=== PATIENT | male | born 1950 | race Hispanic/Latino ===

== ENCOUNTER → 2017-05-04 | Day surgery (SDC) | payer MEDICARE ==
[2017-05-03 13:37] LABS: BASOPHILS # (AUTO) 0.1 (0.0-0.1); BASOPHILS % 0.5 % (0.0-1.0); EOSINOPHILS # (AUTO) 0.2 (0.0-0.4); EOSINOPHILS % 2.4 % (0.0-6.0); HEMATOCRIT 45.5 % (38.2-49.6); HEMOGLOBIN 15.3 g/dL (14.0-18.0); LYMPHOCYTES # (AUTO) 3.5 (1.0-3.2); LYMPHOCYTES % 37.5 % (18.0-39.1); MEAN CORPUSCULAR HEMOGLOBIN 31.2 pg (28-32); MEAN CORPUSCULAR HGB CONC 33.6 g/dL (31-35); MEAN CORPUSCULAR VOLUME 92.9 fL (81-99); MONOCYTES # (AUTO) 0.6 (0.2-0.8); MONOCYTES % 6.4 % (4.4-11.3); NEUTROPHILS # (AUTO) 4.9 (2.1-6.9); PLATELET COUNT 153 x10e3/uL (140-360)
[2017-05-03 14:07] LABS: ALBUMIN 3.8 g/dL (3.5-5.0); CALCIUM 9.6 mg/dL (8.4-10.2); CHOL/HDL RATIO 7.1 (3.9-4.7); CREATININE, SERUM 1.47 mg/dL (0.72-1.25); POTASSIUM 5.3 mmol/L (3.5-5.1)
[2017-05-03 14:31] LABS: ANION GAP 15.6 mmol/L (8-16)
[~2017-05-04] VITALS: Ht 175.3 cm; Wt 77.1 kg
[~2017-05-04] MED LIST: FENTANYL CITRATE/PF 100MCG/2 ML INJ ONE; HEPARIN SOD (PORCINE) 1000 UNIT/ML 30ML ONE; HEPARIN SOD/SOD CHLORIDE 2,000 ML ONE; IOPAMIDOL 300MG/ML 100 ML INFUS..BTL IV ONE; LIDOCAINE HCL 2% LOCAL 20 ML VIAL ONE; MIDAZOLAM HCL 2 MG/2 ML VIAL ONE; NITROGLYCERIN/D5W 200 MCG/ML 250 ML ONE; PRASUGREL 10 MG TAB ONE; SODIUM CHLORIDE 0.9% 1000ML 1,000 ML ONE; VERAPAMIL HCL 2.5 MG/ML 2 ML VIAL ONE
--- NOTE | 2017-05-04 19:11 | Operative Report ---
DATE OF PROCEDURE: May 04, 2017 INDICATIONS: Peripheral arterial disease, claudication of the right lower extremity. PROCEDURES PERFORMED: 1. Abdominal aortogram. 2. Bilateral lower extremity angiograms. 3. Selective catheter placement in the left femoral artery and the right superficial femoral artery (3rd-order). 4. Additional 3rd-order catheter placement in the left femoral artery to the right posterior tibial artery. 5. Atherectomy and drug-coated balloon angioplasty of the right popliteal artery. 6. Secondary thrombectomy of the right popliteal artery. 7. Deployment of left groin Perclose. COMPLICATIONS: None. RECOMMENDATIONS: Dual antiplatelet therapy. Access obtained in left femoral artery. A 6-[place] sheath was placed. Abdominal aortogram demonstrated widely patent abdominal iliac and aorta. Right femoral artery is not well visualized. The catheter was then advanced from the left femoral artery to the right superficial femoral artery (3rd-order catheter placement). Focal stenosis of the right popliteal artery 90% was noted. Need for popliteal vessels are not well seen. Catheter was then advanced from the left femoral artery to the right anterior tibial artery confirming 3 vessel runoff to the right foot. A decision was made to intervene on the right popliteal artery. The patient received 8000 units of intra-arterial heparin and oral Effient for anticoagulation. The sheath was exchanged to a 45 cm sheath. The lesion was crossed using a glidewire and wire exchanged to a Viper wire. Orbital atherectomy using a CSI 1.5 mm classic [place] was performed. Drug-coated balloon angioplasty 5 x 60 mm balloons was performed. Excellent end result, 0% ____ stenosis, 3-vessel runoff; however, visible thrombus was noted. Manual aspiration secondary thrombectomy was negative of the right popliteal artery. Left groin Perclose applied. Patient discharged home the same day. Job#: [id number]
== END | disposition home or self-care (01) ==
LOC: CATH LAB 14:06 → EDSTATUS 16:00
PROVIDERS: ATTEND Internal Medicine Interventional Cardiology
DX: I70.211 Atherosclerosis of native arteries of extremities with intermittent claudication, right leg (principal); I10 Essential (primary) hypertension; Z01.812 Encounter for preprocedural laboratory examination; Z82.49 Family history of ischemic heart disease and other diseases of the circulatory system
CPT/HCPCS: 36415; 37186; 37225; 80053; 80061; 85025; C1724; C1725 ×3; C1769 ×2; C1887; J1644; J2001; J2250; J7030; Q9967; 36140; 75625; 75630; 92924

== ENCOUNTER 2020-10-24 11:48 | Emergency (ER) | payer OTHER ==
[~2020-10-24] VITALS: Ht 172.7 cm; Wt 63.5 kg
[2020-10-24 12:29] LABS: BASOPHILS % 0.3 % (0.0-1.0); HEMATOCRIT 39.4 % (38.2-49.6); HEMOGLOBIN 13.4 g/dL (14.0-18.0); LYMPHOCYTES % 14.5 % (18.0-39.1); MEAN CORPUSCULAR HEMOGLOBIN 30.8 pg (28-32); MEAN CORPUSCULAR VOLUME 90.6 fL (81-99); MONOCYTES # (AUTO) 0.4 (0.2-0.8); MONOCYTES % 4.9 % (4.4-11.3); NEUTROPHILS # (AUTO) 5.8 (2.1-6.9); NEUTROPHILS % 79.9 % (38.7-80.0); PLATELET COUNT 66 x10e3/uL (140-360); RED BLOOD COUNT 4.35 x10e6/uL (4.3-5.7); RED CELL DISTRIBUTION WIDTH 13.8 % (11.7-14.4)
[2020-10-24 12:45] LABS: ALBUMIN 3.5 g/dL (3.5-5.0); ALBUMIN/GLOBULIN RATIO 0.9 (0.8-2.0); CALCIUM 8.2 mg/dL (8.4-10.2); CREATININE, SERUM 1.82 mg/dL (0.72-1.25)
[2020-10-24] MEDS ORDERED: PANTOPRAZOLE 40 MG 10ML VIAL IV STA (12:58)
[2020-10-24] MEDS ORDERED: ONDANSETRON ODT4 MG PO (14:19)
[2020-10-24] MEDS ORDERED: PEPCID20 MG PO (14:22)
[2020-10-24 15:07] VITALS: BP 146/70
== END 2020-10-24 15:09 | disposition home or self-care (01) ==
LOC: ER 12:20
DX: R10.13 Epigastric pain (principal); R63.0 Anorexia; R11.2 Nausea with vomiting, unspecified; I10 Essential (primary) hypertension; E03.9 Hypothyroidism, unspecified
CPT/HCPCS: 36415; 76705; 80053; 83690; 84484; 85025; 93005; 99284; C9113

== ENCOUNTER 2022-12-13 01:09 | Emergency (ER) | payer MEDICARE ==
[~2022-12-13] VITALS: Ht 172.7 cm; Wt 63.5 kg
[~2022-12-13 01:09] MED LIST changes: -FENTANYL CITRATE/PF 100MCG/2 ML INJ ONE; -HEPARIN SOD (PORCINE) 1000 UNIT/ML 30ML ONE; -HEPARIN SOD/SOD CHLORIDE 2,000 ML ONE; -IOPAMIDOL 300MG/ML 100 ML INFUS..BTL IV ONE; -LIDOCAINE HCL 2% LOCAL 20 ML VIAL ONE; -MIDAZOLAM HCL 2 MG/2 ML VIAL ONE; -NITROGLYCERIN/D5W 200 MCG/ML 250 ML ONE; +ONDANSETRON ODT4 MG PO; +PEPCID20 MG PO; -PRASUGREL 10 MG TAB ONE; -SODIUM CHLORIDE 0.9% 1000ML 1,000 ML ONE; -VERAPAMIL HCL 2.5 MG/ML 2 ML VIAL ONE
[2022-12-13] MEDS ORDERED: SODIUM CHLORIDE 0.9% 500ML 500 ML IV ONE (02:00)
[2022-12-13 02:16] LABS: BASOPHILS # (AUTO) 0.1 (0.0-0.1); BASOPHILS % 0.5 % (0.0-1.0); EOSINOPHILS # (AUTO) 0.1 (0.0-0.4); EOSINOPHILS % 1.1 % (0.0-6.0); HEMOGLOBIN 16.1 g/dL (14.0-18.0); LYMPHOCYTES # (AUTO) 1.9 (1.0-3.2); LYMPHOCYTES % 15.2 % (18.0-39.1); MEAN CORPUSCULAR HEMOGLOBIN 30.9 pg (28-32); MEAN CORPUSCULAR HGB CONC 33.5 g/dL (31-35); MEAN CORPUSCULAR VOLUME 92.1 fL (81-99); MONOCYTES # (AUTO) 0.8 (0.2-0.8); MONOCYTES % 6.8 % (4.4-11.3); NEUTROPHILS # (AUTO) 9.3 (2.1-6.9); PLATELET COUNT 151 x10e3/uL (140-360); RED BLOOD COUNT 5.21 x10e6/uL (4.3-5.7); RED CELL DISTRIBUTION WIDTH 13.4 % (11.7-14.4)
[2022-12-13 02:24] LABS: INR 0.95; PROTHROMBIN TIME 13.3 seconds (11.9-14.5)
[2022-12-13 02:25] LABS: PARTIAL THROMBOPLASTIN TIME 33.7 seconds (23.8-35.5)
[2022-12-13 02:34] LABS: ALBUMIN 4.3 g/dL (3.5-5.0); ALBUMIN/GLOBULIN RATIO 1.3 (0.8-2.0); ANION GAP 15.3 mmol/L (8-16); CREATININE, SERUM 2.05 mg/dL (0.72-1.25); POTASSIUM 4.3 mmol/L (3.5-5.1)
[2022-12-13 02:36] LABS: CALCIUM 9.5 mg/dL (8.4-10.2)
[2022-12-13] MEDS ORDERED: ASPIRIN 81 MG CHEW TAB PO ONE (03:00)
[2022-12-13] MEDS ORDERED: ASPIRIN 81 MG CHEW TAB ONE (03:09)
[2022-12-13 04:24] VITALS: BP 120/64; PULSE 50; RESP 15; TEMP 98; O2SAT 98
== END 2022-12-13 04:26 | disposition other institution (70) ==
LOC: ER 01:15
DX: R07.89 Other chest pain (principal); R77.8 Other specified abnormalities of plasma proteins; R19.7 Diarrhea, unspecified; I10 Essential (primary) hypertension; E03.9 Hypothyroidism, unspecified; R94.31 Abnormal electrocardiogram [ECG] [EKG]
CPT/HCPCS: 36415; 71045; 80053; 83880; 84484; 85025; 85610; 85730; 93005; 99284; J7040